=== PATIENT | male | born 1965 | race American Indian/Alaskan Native ===

== ENCOUNTER 2021-05-23 13:21 | Outpatient (CLI) | payer MEDICAID ==
--- NOTE | 2021-05-23 16:56 | XRay Report ---
CHEST 2 VIEWS INDICATION / CLINICAL INFORMATION: CHEST PAIN. COMPARISON: None available. FINDINGS: SUPPORT DEVICES: None. HEART / MEDIASTINUM: No significant abnormality. LUNGS / PLEURA: Ill-defined opacity at the right lung base. Left lung is clear. No pneumothorax. ADDITIONAL FINDINGS: No significant additional findings. IMPRESSION: 1. Ill-defined opacity at the right lung base could represent pneumonia. Recommend follow-up chest ra diograph to ensure resolution. Signer Name: Sharath Ackerman MD Signed: 05/23/2021 4:52 PM Workstation Name: [email or web address]
== END 2021-05-23 13:22 | disposition home or self-care (01) ==
LOC: XRAY 13:21
PROVIDERS: ATTEND Internal Medicine Nephrology
DX: N18.5 Chronic kidney disease, stage 5 (principal)
CPT/HCPCS: 71046